=== PATIENT | male | born 1975 | race Caucasian/White ===

== ENCOUNTER → 2016-07-02 | Outpatient (CLI) | payer OTHER ==
--- NOTE | 2016-07-02 09:06 | Diagnostic Imaging Report ---
CLINICAL INDICATION: Patient with conductive hearing loss, unilateral left ear. Patient states this is postop for eardrum surgery. Checked in to make sure everything is in place. EXAM: Axial CT scan of the temporal bone structures performed without IV contrast. Coronal and sagittal reformatted images are created. COMPARISON: CT scan of the temporal bone structures without IV contrast dated 11/13/2015. FINDINGS: Right temporal bone structures: There is mild thickening of the right tympanic membrane. Left temporal bone structures: There is interval removal of the previously seen lime malleus and incus bones. There is interval placement of a partial ossicular replacement prosthesis. There is lime stapes bone in place and incudo-malleolar prosthesis. The stapes is a stable appropriate position. The incudo-malleolar prosthesis appears to be in good position with no evidence of gross dislocation. There is thickening of the left tympanic membrane measuring 3 mm in thickness. There is no evidence of interval bony erosive changes. Remainder of the left temporal bone structures are unremarkable. There is sclerosis of the bilateral mastoid air cell regions bilaterally. Otherwise, the mastoid air cells are clear. The remainder of the temporal bone structures are unremarkable. The IACs, inner ears, middle ears, and external auditory canals are unremarkable. The oval and round windows are patent. There is no evidence of semicircular canal dehiscence. The visualized temporal bone portions of cranial nerve VII has normal appearance. No evidence of aberrant vascular structures. The vestibular aqueducts have normal appearance bilaterally. There is mild mucosal thickening involving both maxillary sinuses, sphenoid sinus, and ethmoid sinus. The visualized intracranial soft tissue structures are unremarkable. IMPRESSION: 1: Interval placement of partial ossicular replacement prosthesis involving the left incudo-malleolar region with lime stapes bone seen. There is no gross evidence of dislocation, erosions, or other abnormality of the postop region, as visualized. 2: There is nonspecific thickening of the tympanic membranes bilaterally (left side more than the right). 3: Suspected chronic mastoiditis sclerotic changes of the bilateral mastoid bone regions. 4: Otherwise, the remainder of the temporal bone structures are unremarkable. There is no evidence of fluid in the mastoid air cells or middle ear regions. 5: Mild paranasal sinus disease. Dictated by: Dictated on workstation # [id number]
== END ==
LOC: RAD 06:59
PROVIDERS: ATTEND Otolaryngology Otology & Neurotology
DX: H90.12 Conductive hearing loss, unilateral, left ear, with unrestricted hearing on the contralateral side (principal)
CPT/HCPCS: 70480